=== PATIENT | male | born 1985 | race Two or more races ===

== ENCOUNTER 2020-10-10 12:29 | Emergency (ER) | payer SELFPAY ==
--- NOTE | 2020-10-10 13:01 | EDM.PDOC ---
ED HPI GENERAL MEDICAL PROBLEM - General Chief Complaint: Lower Extremity Injury/Pain Stated Complaint: KNEE PAIN Time Seen by Provider: 10/10/20 12:58 Source of Information: Reports: Patient History Limitations: Reports: No Limitations - History of Present Illness INITIAL COMMENTS - FREE TEXT/NARRATIVE: Patient is a 35-year-old male with significant clinic for ankle pain. Patient dates he has some pain in his second and third fingers and also the right ankle. Ankles bother him so much that he can barely put pressure on it. Pain states he occasionally gets pain in his joints and swelling in his knees left hand and elbow over the past few months is not sure the cause of it. Patient is confused and states that he went to his PMD and has some labs drawn and he said his liver enzymes are elevated we checked the computer there were no M liver enzymes drawn just a CRP. Patient also had x-rays not show any swelling. Patient has any fever chills direct injuries to this joint or other complaints. Right ankle Pain Score (Numeric/FACES): 4 - Related Data Allergies Allergy/AdvReac Type Severity Reaction Status Date / Time No Known Allergies Allergy Verified 10/10/20 12:58 Home Meds: Home Meds predniSONE [Prednisone] 10 mg PO DAILY 10 Days #36 tablet 10/10/20 [Rx] Past Medical History - Past Health History Medical/Surgical History: Denies Medical/Surgical History - Infectious Disease History Infectious Disease History: Reports: None Social & Family History - Family History Family Medical History: No Pertinent Family History - Tobacco Use Tobacco Use Status *Q: Unknown Ever Used Tobacco - Recreational Drug Use Recreational Drug Use: No Review of Systems - Review of Systems Review Of Systems: See Below Constitutional: Reports: No Symptoms Eyes: Reports: No Symptoms Ears: Reports: No Symptoms Nose: Reports: No Symptoms Mouth/Throat: Reports: No Symptoms Respiratory: Reports: No Symptoms Cardiovascular: Reports: No Symptoms GI/Abdominal: Reports: No Symptoms Genitourinary: Reports: No Symptoms Musculoskeletal: Reports: Foot Pain Skin: Reports: No Symptoms Neurological: Reports: No Symptoms Psychiatric: Reports: No Symptoms ED EXAM, GENERAL - Physical Exam Exam: See Below Exam Limited By: No Limitations General Appearance: Alert, WD/WN, No Apparent Distress Head: Atraumatic Respiratory/Chest: No Respiratory Distress, Lungs Clear Cardiovascular: Normal Peripheral Pulses, Regular Rate, Rhythm Peripheral Pulses: 2+: Dorsalis Pedis (L), Dorsalis Pedis (R) GI/Abdominal: Normal Bowel Sounds, Soft, Non-Tender Extremities: Normal Range of Motion, Joint Swelling (right ankle). No: Non- Tender Neurological: Alert, Oriented Course - Vital Signs Last Recorded V/S: Last Vital Signs Temp 97.5 F 10/10/20 12:38 Pulse 100 10/10/20 12:38 Resp 16 10/10/20 12:38 BP 132/80 10/10/20 12:38 Pulse Ox 97 10/10/20 12:38 - Orders/Labs/Meds Labs: Laboratory Tests 10/10/20 10/10/20 10/10/20 Range/Units 13:33 13:33 13:33 WBC 12.37 H (4.0-11.0) K/uL RBC 4.07 L (4.50-5.90) M/uL Hgb 12.7 L (13.0-17.0) g/dL Hct 38.3 (38.0-50.0) % MCV 94.1 (80.0-98.0) fL MCH 31.2 (27.0-32.0) pg MCHC 33.2 (31.0-37.0) g/dL RDW Std Deviation 44.7 (28.0-62.0) fl RDW Coeff of Jamal 13 (11.0-15.0) % Plt Count 249 (150-400) K/uL MPV 10.20 (7.40-12.00) fL Neut % (Auto) 85.1 H (48.0-80.0) % Lymph % (Auto) 8.5 L (16.0-40.0) % [place] % (Auto) 6.3 (0.0-15.0) % Eos % (Auto) 0.0 (0.0-7.0) % Baso % (Auto) 0.1 (0.0-1.5) % Neut # (Auto) 10.5 H (1.4-5.7) K/uL Lymph # (Auto) 1.1 (0.6-2.4) K/uL [place] # (Auto) 0.8 (0.0-0.8) K/uL Eos # (Auto) 0.0 (0.0-0.7) K/uL Baso # (Auto) 0.0 (0.0-0.1) K/uL Nucleated RBC % 0.0 /100WBC Nucleated RBCs # 0 K/uL ESR 44 H (0-14) mm/hr Sodium 139 (136-148) mmol/L Potassium 4.5 (3.5-5.1) mmol/L Chloride 101 (98-107) mmol/L Carbon Dioxide 24.7 (21.0-32.0) mmol/L BUN 21 H (7.0-18.0) mg/dL Creatinine 2.6 H (0.8-1.3) mg/dL Est Cr Clr Drug Dosing 38.89 mL/min Estimated GFR (MDRD) 28.6 ml/min Glucose 96 (74-106) mg/dL Calcium 9.3 (8.5-10.1) mg/dL Total Bilirubin 0.6 (0.2-1.0) mg/dL AST 13 L (15-37) IU/L ALT 15 (14-63) IU/L Alkaline Phosphatase 83 (46-116) U/L Creatine Kinase 65 (26-308) U/L Total Protein 8.7 H (6.4-8.2) g/dL Albumin 3.3 L (3.4-5.0) g/dL Globulin 5.4 H (2.6-4.0) g/dL Albumin/Globulin Ratio 0.6 L (0.9-1.6) Meds: Medications Discontinued Medications Generic Name Dose Route Start Last Admin Trade Name Freq PRN Reason Stop Dose Admin Prednisone 40 mg 10/11/20 12:57 Prednisone 20 Mg Tab PO 10/11/20 12:58 ONETIME ONE Prednisone 40 mg 10/10/20 13:24 10/10/20 13:28 Prednisone 20 Mg Tab PO 10/10/20 13:25 40 mg ONETIME ONE Administration - Re-Assessments/Exams Free Text/Narrative Re-Assessment/Exam: 10/10/20 15:03 Due to patient creatinine we will start patient on a prednisone taper. Unlikely based on septic joint as he has multiple joints that are affected this could possibly be gout. Patient cannot take any NSAIDs at this moment. What you are ordering crutches Why you are ordering it support with ambulation How it will benefit patient with ambulation How long is patient to use it 7-10day or until pain improves Departure - Departure Time of Disposition: 15:05 Disposition: Home, Self-Care 01 Condition: Good Clinical Impression: Gout - Discharge Information *PRESCRIPTION DRUG MONITORING PROGRAM REVIEWED*: Not Applicable *COPY OF PRESCRIPTION DRUG MONITORING REPORT IN PATIENT ABELARDO: Not Applicable Prescriptions: predniSONE [Prednisone] 10 mg PO DAILY 10 Days #36 tablet Instructions: Osteoarthritis Referrals: PCP,None [Primary Care Provider] - Forms: ED Department Discharge Additional Instructions: The following information is given to patients seen in the emergency department who are being discharged to home. This information is to outline your options for follow-up care. We provide all patients seen in our emergency department with a follow-up referral. The need for follow-up, as well as the timing and circumstances, are variable depending upon the specifics of your emergency department visit. If you don't have a primary care physician on staff, we will provide you with a referral. We always advise you to contact your personal physician following an emergency department visit to inform them of the circumstance of the visit and for follow-up with them and/or the need for any referrals to a consulting specialist. The emergency department will also refer you to a specialist when appropriate. This referral assures that you have the opportunity for follow-up care with a specialist. All of these measure are taken in an effort to provide you with optimal care, which includes your follow-up. Under all circumstances we always encourage you to contact your private phys ician who remains a resource for coordinating your care. When calling for follow-up care, please make the office aware that this follow-up is from your recent emergency room visit. If for any reason you are refused follow-up, please contact the [facility] Emergency Department at and asked to speak to the emergency department charge nurse. Please follow up with your primary care physician. If you do not have a primary care physician, see below: [facility] [address] [place] [id number] [address] Lo vieron hoy por hinchazn y dolor en el tobillo y dolor. Es probable que tenga gota, le enviaremos a casa con mya reduccin de esteroides que angeles tomara amarjit los prximos 10 metzger. El da 1 puede harriet 50 mg amarjit 5 metzger en total y luego despus de harriet 40 mg amarjit 1 da, 30 mg amarjit 1 da, 20 mg amarjit 1 da y luego 10 mg 2 metzger por un total de 10 metzger. Si tiene ms dolor o hinchazn o fiebre o escalofros, regrese al servicio de urgencias; de lo contrario, cassie un seguimiento con cedeño mdico de atencin primaria. Sepsis Event Note (ED) - Evaluation Sepsis Screening Result: No Definite Risk - Focused Exam Vital Signs: Vital Signs Temp Pulse Resp BP Pulse Ox 10/10/20 12:38 97.5 F 100 16 132/80 97 - Assessment/Plan Plan: Patient is a 35-year-old male who presents today for evaluation of right ankle pain and right hand pain. Patient had images done yesterday did not show any joint effusions or fractures. Patient seems to possibly have some gout or polyarthritis. Patient does not seem to have a septic arthritis on exam. We put ultrasound to the right ankle and there does not looks to be a pocket or joint that can be drained. Patient been taking Motrin at home. We will try patient on some prednisone and outpatient follow-up.
[2020-10-10] MEDS ORDERED: predniSONE 20 MG Tab PO ONE (13:24)
[2020-10-10 14:28] LABS: CARBON DIOXIDE,CO2 24.7 mmol/L (21.0-32.0); POTASSIUM,K 4.5 mmol/L (3.5-5.1)
[2020-10-11] MEDS ORDERED: predniSONE 20 MG Tab PO ONE (12:57)
== END 2020-10-10 15:35 | disposition home or self-care (01) ==
LOC: MW.ED 12:29
DX: M10.9 Gout, unspecified (principal)
CPT/HCPCS: 36415; 80053; 82550; 85025; 85652; 99283; A9270

== ENCOUNTER 2020-10-22 11:59 | Inpatient (IN) | payer OTHER ==
[2020-10-22] MEDS ORDERED: Ketorolac 15 MG/ML SDV IVPUSH ONE (12:27)
[2020-10-22] MEDS ORDERED: Ketorolac 30 MG/ML SDV IM ONE (12:41)
[2020-10-22 13:11] LABS: CARBON DIOXIDE,CO2 25.1 mmol/L (21.0-32.0); POTASSIUM,K 3.9 mmol/L (3.5-5.1)
[2020-10-22] MEDS ORDERED: Lactated Ringers 1,000 ML IV SCH (14:30)
[2020-10-22] MEDS ORDERED: predniSONE 20 MG Tab PO ONE (16:16)
[2020-10-22] MEDS ORDERED: Ondansetron 4 MG Tab.DIS PO PRN (18:17)
[2020-10-22] MEDS ORDERED: cefTRIAXone 1 GM Vial IVPUSH ONE (18:22)
--- NOTE | 2020-10-22 18:38 | PCM.HP.2 ---
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 Patient has no significant past medical history, however was recently seen for joint pain, treated for gouty arthritis, underwent extensive work-up with imaging, labs, nephrology consult for kidney injury and started on prednisone taper for what appeared to be a gouty arthritis flare. Since PCPs follow-up patient has dis continued all use of NSAIDs, home herbal remedies from [place] as well as been compliant and adherent with the prednisone regimen. Upon follow-up with PCP patient was feeling much improved, all studies were found to be negative including imaging such as x-rays, retroperitoneal ultrasound and rheumatologic labs. However, at that time his uric acid was elevated as well as ESR CRP and since in comparison today with lab collection in the ED all of these values have increased. Patient described pain on admission 10 out of 10, was given bolus of LR, lidocaine 30 of Toradol and prednisone 60. Since then symptoms have mildly improved to be an 8 out of 10. Otherwise patient denies any alleviating or aggravating factors. Denies any previous history of rheumatologic or kidney disease. Denies any associated family history. Denies any associated symptoms today such as fever, chills, no obvious tophi, no significant erythema or drainage from any joints. Denies any history of STDs or recent exposures or travel. Furthermore, patient denies any nausea, vomiting, diarrhea, urinary changes, flank pain or suprapubic tenderness. ED course: CBC demonstrating elevated white count of 20.3, CMP demonstrating renal failure with a BUN of 29 and creatinine of 2.6 respectively, Covid swabnegative, synovial uric acid, CRP19.6, ESR82, chlamydia and gonorrhea, synovial fluid tested from left knee joint indicating monosodium urate crystals. All extremeties Pain Score (Numeric/FACES): 10 - Related Data Allergies/Adverse Reactions: Allergies Allergy/AdvReac Type Severity Reaction Status Date / Time No Known Allergies Allergy Verified 10/22/20 18:47 Home Medications: Home Meds . [Unable to Verify Home Med List] 10/22/20 [History] Past Medical History - Past Health History Medical/Surgical History: Denies Medical/Surgical History - Infectious Disease History Infectious Disease History: Reports: None Social & Family History - Family History Family Medical History: No Pertinent Family History - Tobacco Use Tobacco Use Status *Q: Never Tobacco User - Recreational Drug Use Recreational Drug Use: No H&P Review of Systems - Review of Systems: Review Of Systems: See Below General: Reports: No Symptoms HEENT: Reports: No Symptoms Pulmonary: Reports: No Symptoms Cardiovascular: Reports: No Symptoms Gastrointestinal: Reports: No Symptoms Genitourinary: Reports: No Symptoms Musculoskeletal: Reports: Arm Pain, Hand Pain, Leg Pain Skin: Reports: No Symptoms Psychiatric: Reports: No Symptoms Neurological: Reports: No Symptoms Hematologic/Lymphatic: Reports: No Symptoms Immunologic: Reports: No Symptoms Exam - Exam Exam: See Below - Vital Signs Vital Signs: Last Vital Signs Temp 97.1 F 10/22/20 12:16 Pulse 89 10/22/20 18:13 Resp 16 10/22/20 18:13 BP 112/62 10/22/20 18:13 Pulse Ox 99 10/22/20 18:13 Weight: 170 lb - Exam Quality Assessment: DVT Prophylaxis General: Alert, Oriented, Cooperative, Mild Distress HEENT: Conjunctiva Clear, EACs Clear, EOMI, Hearing Intact, Mucosa Moist & [place], Nares Patent, Normal Nasal Septum, Posterior Pharynx Clear, PERRLA Neck: Supple, Trachea Midline, Full Range of Motion Lungs: Clear to Auscultation, Normal Respiratory Effort Cardiovascular: Regular Rate, Regular Rhythm, Normal S1, Normal S2 GI/Abdominal Exam: Normal Bowel Sounds, Soft, Non-Tender, No Organomegaly, No Distention, No Mass Back Exam: Normal Inspection, Full Range of Motion. No: CVA Tenderness (L), CVA Tenderness (R), Muscle Spasm, Paraspinal Tenderness, Vertebral Tenderness Extremities: Normal Inspection, Normal Range of Motion, No Pedal Edema, Normal Capillary Refill, Arm Pain Peripheral Pulses: 2+: Carotid (L), Carotid (R), Dorsalis Pedis (L), Dorsalis Pedis (R) Skin: Warm, Dry, Intact Neurological: Cranial Nerves Intact, Reflexes Equal Bilateral Neuro Extensive - Mental Status: Alert, Oriented x3, Normal Mood/Affect, Normal Cognition, Memory Intact Neuro Extensive - Motor, Sensory, Reflexes: CN II-XII Intact, Normal Reflexes DTR: 2+: Bicep (L), Bicep (R), Achilles (L), Achilles (R) Psychiatric: Alert, Normal Affect, Normal Mood - Patient Data Lab Results Last 24 hrs: Laboratory Results - last 24 hr 10/22/20 10/22/20 10/22/20 Range/Units 12:44 12:44 12:44 WBC 20.34 H (4.0-11.0) K/uL RBC 4.10 L (4.50-5.90) M/uL Hgb 12.8 L (13.0-17.0) g/dL Hct 38.2 (38.0-50.0) % MCV 93.2 (80.0-98.0) fL MCH 31.2 (27.0-32.0) pg MCHC 33.5 (31.0-37.0) g/dL RDW Std Deviation 49.0 (28.0-62.0) fl RDW Coeff of Jamal 14 (11.0-15.0) % Plt Count 268 (150-400) K/uL MPV 10.10 (7.40-12.00) fL Neut % (Auto) 86.1 H (48.0-80.0) % Lymph % (Auto) 6.4 L (16.0-40.0) % [place] % (Auto) 7.5 (0.0-15.0) % Eos % (Auto) 0.0 (0.0-7.0) % Baso % (Auto) 0.0 (0.0-1.5) % Neut # (Auto) 17.5 H (1.4-5.7) K/uL Lymph # (Auto) 1.3 (0.6-2.4) K/uL [place] # (Auto) 1.5 H (0.0-0.8) K/uL Eos # (Auto) 0.0 (0.0-0.7) K/uL Baso # (Auto) 0.0 (0.0-0.1) K/uL Nucleated RBC % 0.0 /100WBC Nucleated RBCs # 0 K/uL ESR 82 H (0-14) mm/hr Sodium 135 L (136-148) mmol/L Potassium 3.9 (3.5-5.1) mmol/L Chloride 98 (98-107) mmol/L Carbon Dioxide 25.1 (21.0-32.0) mmol/L BUN 29 H (7.0-18.0) mg/dL Creatinine 2.6 H (0.8-1.3) mg/dL Est Cr Clr Drug Dosing 35.15 mL/min Estimated GFR (MDRD) 28.6 ml/min Glucose 115 H (74-106) mg/dL Uric Acid 14.4 H (2.6-7.2) mg/dL Calcium 7.3 L (8.5-10.1) mg/dL Total Bilirubin 0.9 (0.2-1.0) mg/dL AST 11 L (15-37) IU/L ALT 21 (14-63) IU/L Alkaline Phosphatase 63 (46-116) U/L C-Reactive Protein 19.60 H (0.00-0.90) mg/dL Total Protein 8.1 (6.4-8.2) g/dL Albumin 3.3 L (3.4-5.0) g/dL Globulin 4.8 H (2.6-4.0) g/dL Albumin/Globulin Ratio 0.7 L (0.9-1.6) Urine Color Urine Appearance Urine pH (5.0-8.0) Ur Specific [place] (1.001-1.035) Urine Protein (NEGATIVE) mg/dL Urine Glucose (UA) (NEGATIVE) mg/dL Urine Ketones (NEGATIVE) mg/dL Urine Occult Blood (NEGATIVE) Urine Nitrite (NEGATIVE) Urine Bilirubin (NEGATIVE) Urine Urobilinogen (<2.0) EU/dL Ur Leukocyte Esterase (NEGATIVE) Urine RBC (0-2/HPF) Urine WBC (0-5/HPF) Ur Epithelial Cells (NONE-FEW) Urine Bacteria (NEGATIVE) Fluid Type Fluid Color Fluid Appearance Fluid WBC /uL Fluid RBC /uL Fluid Mononuclear Cell % Fl Polymorphonucl Cell % Fluid Crystals SARS-CoV-2 RNA (FORT[place]) (NEGATIVE) 06/20/21 06/20/21 06/20/21 Range/Units 13:40 15:03 16:46 WBC (4.0-11.0) K/uL RBC (4.50-5.90) M/uL Hgb (13.0-17.0) g/dL Hct (38.0-50.0) % MCV (80.0-98.0) fL MCH (27.0-32.0) pg MCHC (31.0-37.0) g/dL RDW Std Deviation (28.0-62.0) fl RDW Coeff of Jamal (11.0-15.0) % Plt Count (150-400) K/uL MPV (7.40-12.00) fL Neut % (Auto) (48.0-80.0) % Lymph % (Auto) (16.0-40.0) % [place] % (Auto) (0.0-15.0) % Eos % (Auto) (0.0-7.0) % Baso % (Auto) (0.0-1.5) % Neut # (Auto) (1.4-5.7) K/uL Lymph # (Auto) (0.6-2.4) K/uL [place] # (Auto) (0.0-0.8) K/uL Eos # (Auto) (0.0-0.7) K/uL Baso # (Auto) (0.0-0.1) K/uL Nucleated RBC % /100WBC Nucleated RBCs # K/uL ESR (0-14) mm/hr Sodium (136-148) mmol/L Potassium (3.5-5.1) mmol/L Chloride (98-107) mmol/L Carbon Dioxide (21.0-32.0) mmol/L BUN (7.0-18.0) mg/dL Creatinine (0.8-1.3) mg/dL Est Cr Clr Drug Dosing mL/min Estimated GFR (MDRD) ml/min Glucose (74-106) mg/dL Uric Acid (2.6-7.2) mg/dL Calcium (8.5-10.1) mg/dL Total Bilirubin (0.2-1.0) mg/dL AST (15-37) IU/L ALT (14-63) IU/L Alkaline Phosphatase (46-116) U/L C-Reactive Protein (0.00-0.90) mg/dL Total Protein (6.4-8.2) g/dL Albumin (3.4-5.0) g/dL Globulin (2.6-4.0) g/dL Albumin/Globulin Ratio (0.9-1.6) Urine Color YELLOW Urine Appearance CLEAR Urine pH 6.0 (5.0-8.0) Ur Specific [place] 1.020 (1.001-1.035) Urine Protein 100 H (NEGATIVE) mg/dL Urine Glucose (UA) NEGATIVE (NEGATIVE) mg/dL Urine Ketones TRACE H (NEGATIVE) mg/dL Urine Occult Blood SMALL H (NEGATIVE) Urine Nitrite NEGATIVE (NEGATIVE) Urine Bilirubin NEGATIVE (NEGATIVE) Urine Urobilinogen 0.2 (<2.0) EU/dL Ur Leukocyte Esterase NEGATIVE (NEGATIVE) Urine RBC 0-2 (0-2/HPF) Urine WBC 0-1 (0-5/HPF) Ur Epithelial Cells RARE (NONE-FEW) Urine Bacteria RARE (NEGATIVE) Fluid Type SYN Fluid Color YELLOW Fluid Appearance CLOUDY Fluid WBC 34696 /uL Fluid RBC < 3000 /uL Fluid Mononuclear Cell 37 % Fl Polymorphonucl Cell 64 % Fluid Crystals MONOSOD URATE SARS-CoV-2 RNA ([place]) NEGATIVE (NEGATIVE) Result Diagrams: 10/22/20 12:44 10/22/20 12:44 Sepsis Event Note - Evaluation Sepsis Screening Result: No Definite Risk - Focused Exam Vital Signs: Vital Signs Temp Pulse Resp BP Pulse Ox 10/22/20 18:13 89 16 112/62 99 10/22/20 16:44 94 16 120/49 L 99 10/22/20 14:22 99 16 109/52 L 98 10/22/20 12:16 97.1 F 112 H 16 131/77 97 - Problem List (1) Renal injury SNOMED Code(s): 24928309 ICD Code: S37.009A - UNSPECIFIED INJURY OF UNSPECIFIED KIDNEY, INITIAL ENCOUNTER Status: Acute Current Visit: Yes Problem List Initiated/Reviewed/Updated: Yes Orders Last 24hrs: Active Orders 24 hr Category Date Time Status Admission Status [Patient Status] [ADT] Stat ADT 10/22/20 16:50 Active Oxygen Therapy [RC] PRN Care 10/22/20 18:17 Active Up With Assistance [RC] ASDIRECTED Care 10/22/20 18:17 Active VTE/DVT Education [RC] PER UNIT ROUTINE Care 10/22/20 18:17 Active Vital Signs [RC] Q4H Care 10/22/20 18:17 Active PT Evaluation and Treatment [CONS] Routine Cons 10/22/20 18:17 Active Regular Diet [DIET] Diet 10/22/20 Dinner Active C-REACTIVE PROTEIN [CHEM] AM Lab 10/23/20 05:11 Ordered CBC WITH AUTO DIFF [HEME] AM Lab 10/23/20 05:11 Ordered CBC WITH AUTO DIFF [HEME] AM Lab 10/24/20 05:11 Ordered CBC WITH AUTO DIFF [HEME] AM Lab 10/25/20 05:11 Ordered CHLAMYDIA AND GONORRHEA BY TMA Stat Lab 10/22/20 14:30 Received COMPREHENSIVE METABOLIC PN,CMP [CHEM] AM Lab 10/23/20 05:11 Ordered COMPREHENSIVE METABOLIC PN,CMP [CHEM] AM Lab 10/24/20 05:11 Ordered COMPREHENSIVE METABOLIC PN,CMP [CHEM] AM Lab 10/25/20 05:11 Ordered CREATININE,URINE RAND [URCHEM] Routine Lab 10/22/20 18:24 Ordered CULTURE BODY FLUID + SMEAR [RM] Stat Lab 10/22/20 15:03 Received SEDIMENTATION RATE AUTO [HEME] AM Lab 10/23/20 05:11 Ordered SODIUM,URINE RANDOM [URCHEM] Routine Lab 10/22/20 18:24 Ordered SYNOVIAL URIC ACID Stat Lab 10/22/20 15:03 Received Heparin Sodium Med 10/22/20 18:30 Ordered 5,000 units SUBCUT Q8H Lactated Ringers [Ringers, Lactated] 1,000 ml Med 10/22/20 14:30 Active IV ASDIRECTED Lactated Ringers [Ringers, Lactated] 1,000 ml Med 10/22/20 18:30 Active IV ASDIRECTED Morphine Med 10/22/20 18:17 Ordered 2 mg IVPUSH Q2H PRN Ondansetron [Zofran ODT] Med 10/22/20 18:17 Active 4 mg PO Q4H PRN cefTRIAXone [Rocephin] Med 10/22/20 18:22 Once 1 gm IVPUSH ONETIME ONE Resuscitation Status Routine Resus Stat 10/22/20 18:17 Ordered Medication Orders Ceftriaxone Sodium (Ceftriaxone 1 Gm Vial) 1 gm IVPUSH ONETIME ONE Stop: 10/22/20 18:23 Heparin Sodium (Porcine) (Heparin Sodium 5,000 Units/Ml Vial) 5,000 units SUBCUT Q8H GLORIA Lactated Ringer's (Ringers, Lactated) 1,000 mls @ 999 mls/hr IV ASDIRECTED GLORIA Last Admin: 10/22/20 14:32 Dose: 999 mls/hr Documented by: ROSA Lactated Ringer's (Ringers, Lactated) 1,000 mls @ 125 mls/hr IV ASDIRECTED GLORIA Morphine Sulfate (Morphine 10 Mg/Ml Syringe) 2 mg IVPUSH Q2H PRN PRN Reason: Pain (severe 7-10) Stop: 10/23/20 18:18 Ondansetron HCl (Ondansetron 4 Mg Tab.Dis) 4 mg PO Q4H PRN PRN Reason: nausea, able to take PO Assessment/Plan Comment:: 35-year-old male admitted with gouty arthritis in multiple joints and acute on chronic kidney injury: 1. Gouty arthritis: Elevated white count of 20.3, upward trending ESR, CRP and uric acid levels. Synovial fluid demonstrated monosodium urate crystals. Extensive work-up has not demonstrated any RF, or vasculitis contributing to compromise kidney function. Patient denies any alcohol use in over a month. States he has a regular diet. We will continue with prednisone 60, consult rheumatology. Patient currently unable to ambulate therefore will consult PT to evaluate and treat. Prophylactically we will give Rocephin one-time dose in case of STD as underlying cause. Pain control with morphine 2 g to 2 hours, will avoid any NSAIDs or colchicine due to renal injury. Trend ESR and CRP daily 2. Acute on chronic kidney injury: BUN 29, creatinine 2.6, stable since last 3 weeks, no previous history of kidney disease. Previous renal ultrasound was unremarkable Unchanged UA We will consult nephrology in [place] Avoid any NSAIDs or nephrotoxic agents Continue to hydrate at a maintenance rate of 125 normal saline. Assess FeNa CODE STATUS: Full code, confirmed with japanese interpreter services. Dispo: Expected 1 to 2 days, will be determined based on patient's symptoms. Diet: Regular, avoid any meals with high levels of protein or high fructose corn syrup. DVT prophylaxis: Heparin 5000 subcu due to kidney injury.
--- NOTE | 2020-10-22 18:55 | EDM.PDOC ---
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 The patient states that he was diagnosed with gout approximately 2 weeks ago in the emergency department here. He states that he was given prednisone and he did really well. He states that he when he ran out of the medications his pain started to return however now it is worse. He rates his pain as 10 out of 10 burning located in his bilateral knees bilateral ankles, bilateral wrists and some of his fingers. He denies any fevers or redness. He denies any numbness but states that he is unable to walk secondary to the pain. He states that he did follow-up with Dr. Schmitt in the clinic and was told that he had some kidney dysfunction. He denies any preceding issues such as cold-like symptoms denies any weight loss or night sweats. He has not traveled out of country and does not know if he he is up-to-date on his vaccinations. He states that he is not sexually active and has not had a history of STDs. He denies any family history of rheumatological disorders. He denies any chest pain, shortness of breath, abdominal pain, nausea or vomiting. He denies any headache. REVIEW OF SYSTEMS: Constitutional: Denies fever, chills. Eyes: Denies eye pain Ears, Nose, Mouth, & Throat: Denies earache Cardiovascular: Denies chest pain Respiratory: Denies shortness of breath Gastrointestinal: Denies Nausea, vomiting, diarrhea, hematochezia. Genitourinary: Denies hematuria Skin:Denies a rash MSK: Positive for bilateral knee, ankle, wrist, hand pain and inability to walk secondary to pain Neurological: Denies blurred vision, numbness, tingling, weakness Psychiatric: Denies depression PAST MEDICAL HISTORY: As per history of present illness and as reviewed below otherwise noncontributory. SURGICAL HISTORY: As per history of present illness and as reviewed below otherwise noncontributory. SOCIAL HISTORY: As per history of present illness and as reviewed below otherwise noncontributory. FAMILY HISTORY: As per history of present illness and as reviewed below otherwise noncontributory. EXAMINATION OF ORGAN SYSTEMS/BODY AREAS: Constitutional: Blood pressure was 131/77, heart rate 112, respiratory rate 16 with an oxygen saturation 97% on room air. Temperature 36.2 General: Overall well-appearing man who is in no acute distress. The patient did require assistance with ambulating from wheelchair to our chair for evaluation Psychiatric: Appropriate mood and affect. Eyes: No scleral icterus or conjunctival erythema ENMT: Moist mucous membranes. No pharyngeal erythema Cardiovascular: Tachycardic but regular no gallops, murmurs, or rubs. Bilateral upper extremity pulses symmetric and intact. No peripheral edema. No JVD. Respiratory: Lungs clear to auscultation bilaterally. No wheezes, rales, or rhonchi. Gastrointestinal: Soft, non-tender, non-distended. Normoactive bowel sounds Genitourinary: No suprapubic tenderness Musculoskeletal: The patient's bilateral knees, bilateral ankles, bilateral wrists and the posterior aspect of the hand at the knuckles are all warm to the touch. There is no obvious swelling of any of these joints but they are tender to touch. Skin: There are some mild erythema on the posterior aspect of the left hand otherwise no other skin changes. Neurological: Alert, GCS 15 MEDICAL DECISION MAKING AND COURSE IN THE ED WITH INTERPRETATION/REVIEW OF DIAGNOSTIC STUDIES: This is a 35-year-old man with a reported past medical history of gout who comes to the emergency department with worsening bilateral knee, ankle, wrist and hand pain which has progressed to inability to bear weight. I did review the patient's chart and the patient was given prednisone on October 10, 2020 and was given a 10-day prescription. He did follow-up with primary care. Labs that were obtained on October 18, 2020 did reveal leukocytosis 15.62 and elevated BUN of 45 and creatinine of 2.9. It appears that prior they did obtain an ESR at 44, CRP of 9.4 and a rheumatic factor screen which was negative. At this time I do believe it is atypical to have symmetric septic arthritis and I do believe this is likely inflammatory. We will provide the patient with Toradol for pain relief. Will obtain CBC, CMP, ESR, CRP and a urinalysis. I did perform a bedside ultrasound and there was minimal effusion of the knee. I did provide the patient with 1 L of lactated Ringer's bolus given the tachycardia. Laboratory: CBC reveals a leukocytosis of 20.34 which is up from prior at 15.62. Hemoglobin of 12.8 which is around the patient's baseline, neutrophilia and lymphopenia without any obvious left shift. ESR is 82 up from 44. CMP reveals hyponatremia at 135, elevated BUN at 29 and a creatinine of 2.6 which is unchanged from prior. Hyperglycemia at 115, hypocalcemia at 7.3, hypoalbuminemia at 3.3. CRP is elevated at 19.6 which is up from prior at 9.3 Urinalysis was a clean catch and was negative for leukocyte esterase, negative for nitrites, and small for blood. 0-2 RBCs. There is proteinuria interpretation: Proteinuria At this time I did have a discussion with the patient regarding the laboratory analysis. I do believe this is all inflammatory given the elevated ESR, CRP and leukocytosis and not an infectious process. I did discuss the case also with Dr. Kenny who recommended transfer just in case this is septic arthritis and for possible evaluation by nephrology as we do not have either of those services here at our hospital. At this time had not performed a arthrocentesis. I did discuss obtaining an arthrocentesis from the patient. He was amenable to this plan. Consent was verbally obtained. ARTHROCENTESIS PROCEDURE NOTE Consent for Arthrocentesis: Risks and benefits discussed with patient and verbal consent obtained Prior to the procedure the area was confirmed via ultrasound. Site marked and prepared in sterile fashion. Wheel of lidocaine placed. Lidocaine then introduced into the joint space. The area of interest was identified by Christo palpation on the medial aspect of the left knee and Fluid was removed from the joint space . Samples were sent to the lab for analysis. Estimated Blood Loss: minimal Complications: The patient tolerated the procedure well without any known complications Laboratory: Fluid white blood cell count of the synovial fluid was 13,126, RBCs are less than 3000, polymorphonuclear cells are 64% and there is monosodium urate crystals. At this time I do believe the patient has an acute gout flare therefore I provide the patient with 60 mg of prednisone. I did contact Dr. Kenny and discussed the synovial fluid results with the hospitalist. At this time he was amenable for admission given that the patient is unable to ambulate given the pain. Patient was amenable to admission at this time. We will obtain a Covid swab DISPOSITION: The patient was admitted to the hospital in stable condition CONDITION: Fair PROCEDURES: Left knee arthrocentesis FINAL IMPRESSION(S)/DIAGNOSES: 1. Acute gouty flare 2. Acute inability to ambulate secondary to pain Chicho Duque M.D. All extremeties Pain Score (Numeric/FACES): 10 - Related Data Allergies Allergy/AdvReac Type Severity Reaction Status Date / Time No Known Allergies Allergy Verified 10/22/20 18:47 Home Meds: Home Meds . [Unable to Verify Home Med List] 10/22/20 [History] Past Medical History - Past Health History Medical/Surgical History: Denies Medical/Surgical History - Infectious Disease History Infectious Disease History: Reports: None Social & Family History - Family History Family Medical History: No Pertinent Family History - Tobacco Use Tobacco Use Status *Q: Never Tobacco User - Recreational Drug Use Recreational Drug Use: No ED ROS GENERAL - Review of Systems Review Of Systems: See Below ED EXAM, GENERAL - Physical Exam Exam: See Below GI/Abdominal: Normal Bowel Sounds, Soft, Non-Tender, No Organomegaly, No Distention, No Mass Course - Vital Signs Last Recorded V/S: Last Vital Signs Temp 36.4 C 10/22/20 18:20 Pulse 92 10/22/20 18:20 Resp 17 10/22/20 18:20 BP 119/74 10/22/20 18:20 Pulse Ox 97 10/22/20 18:20 - Orders/Labs/Meds Orders: Active Orders 24 hr Category Date Time Status CHLAMYDIA AND GONORRHEA BY TMA Stat Lab 10/22/20 14:30 Received CULTURE BODY FLUID + SMEAR [RM] Stat Lab 10/22/20 15:03 Received SYNOVIAL URIC ACID Stat Lab 10/22/20 15:03 Received Lactated Ringers [Ringers, Lactated] 1,000 ml Med 10/22/20 14:30 Active IV ASDIRECTED Medication Orders Heparin Sodium (Porcine) (Heparin Sodium 5,000 Units/Ml Vial) 5,000 units SUBCUT Q8H GLORIA Lactated Ringer's (Ringers, Lactated) 1,000 mls @ 999 mls/hr IV ASDIRECTED GLORIA Last Admin: 10/22/20 14:32 Dose: 999 mls/hr Documented by: ROSA Lactated Ringer's (Ringers, Lactated) 1,000 mls @ 125 mls/hr IV ASDIRECTED [facility] Ceftriaxone Sodium/Dextrose 1 (gm/ Premix) 50 mls @ 100 mls/hr IV Q24H GLORIA Morphine Sulfate (Morphine 2 Mg/Ml Syringe) 2 mg IVPUSH Q2H PRN PRN Reason: Pain (severe 7-10) Stop: 10/23/20 18:18 Ondansetron HCl (Ondansetron 4 Mg Tab.Dis) 4 mg PO Q4H PRN PRN Reason: nausea, able to take PO Labs: Laboratory Tests 10/22/20 10/22/20 10/22/20 Range/Units 12:44 12:44 12:44 WBC 20.34 H (4.0-11.0) K/uL RBC 4.10 L (4.50-5.90) M/uL Hgb 12.8 L (13.0-17.0) g/dL Hct 38.2 (38.0-50.0) % MCV 93.2 (80.0-98.0) fL MCH 31.2 (27.0-32.0) pg MCHC 33.5 (31.0-37.0) g/dL RDW Std Deviation 49.0 (28.0-62.0) fl RDW Coeff of Jamal 14 (11.0-15.0) % Plt Count 268 (150-400) K/uL MPV 10.10 (7.40-12.00) fL Neut % (Auto) 86.1 H (48.0-80.0) % Lymph % (Auto) 6.4 L (16.0-40.0) % [place] % (Auto) 7.5 (0.0-15.0) % Eos % (Auto) 0.0 (0.0-7.0) % Baso % (Auto) 0.0 (0.0-1.5) % Neut # (Auto) 17.5 H (1.4-5.7) K/uL Lymph # (Auto) 1.3 (0.6-2.4) K/uL [place] # (Auto) 1.5 H (0.0-0.8) K/uL Eos # (Auto) 0.0 (0.0-0.7) K/uL Baso # (Auto) 0.0 (0.0-0.1) K/uL Nucleated RBC % 0.0 /100WBC Nucleated RBCs # 0 K/uL ESR 82 H (0-14) mm/hr Sodium 135 L (136-148) mmol/L Potassium 3.9 (3.5-5.1) mmol/L Chloride 98 (98-107) mmol/L Carbon Dioxide 25.1 (21.0-32.0) mmol/L BUN 29 H (7.0-18.0) mg/dL Creatinine 2.6 H (0.8-1.3) mg/dL Est Cr Clr Drug Dosing 35.15 mL/min Estimated GFR (MDRD) 28.6 ml/min Glucose 115 H (74-106) mg/dL Uric Acid 14.4 H (2.6-7.2) mg/dL Calcium 7.3 L (8.5-10.1) mg/dL Total Bilirubin 0.9 (0.2-1.0) mg/dL AST 11 L (15-37) IU/L ALT 21 (14-63) IU/L Alkaline Phosphatase 63 (46-116) U/L C-Reactive Protein 19.60 H (0.00-0.90) mg/dL Total Protein 8.1 (6.4-8.2) g/dL Albumin 3.3 L (3.4-5.0) g/dL Globulin 4.8 H (2.6-4.0) g/dL Albumin/Globulin Ratio 0.7 L (0.9-1.6) Urine Color Urine Appearance Urine pH (5.0-8.0) Ur Specific [place] (1.001-1.035) Urine Protein (NEGATIVE) mg/dL Urine Glucose (UA) (NEGATIVE) mg/dL Urine Ketones (NEGATIVE) mg/dL Urine Occult Blood (NEGATIVE) Urine Nitrite (NEGATIVE) Urine Bilirubin (NEGATIVE) Urine Urobilinogen (<2.0) EU/dL Ur Leukocyte Esterase (NEGATIVE) Urine RBC (0-2/HPF) Urine WBC (0-5/HPF) Ur Epithelial Cells (NONE-FEW) Urine Bacteria (NEGATIVE) Ur Random Creatinine mg/dL Ur Random Sodium (40.0-220.0) mmol/L Fluid Type Fluid Color Fluid Appearance Fluid WBC /uL Fluid RBC /uL Fluid Mononuclear Cell % Fl Polymorphonucl Cell % Fluid Crystals SARS-CoV-2 RNA (FORTUNATO) (NEGATIVE) 10/22/20 10/22/20 10/22/20 Range/Units 13:40 14:30 15:03 WBC (4.0-11.0) K/uL RBC (4.50-5.90) M/uL Hgb (13.0-17.0) g/dL Hct (38.0-50.0) % MCV (80.0-98.0) fL MCH (27.0-32.0) pg MCHC (31.0-37.0) g/dL RDW Std Deviation (28.0-62.0) fl RDW Coeff of Jamal (11.0-15.0) % Plt Count (150-400) K/uL MPV (7.40-12.00) fL Neut % (Auto) (48.0-80.0) % Lymph % (Auto) (16.0-40.0) % [place] % (Auto) (0.0-15.0) % Eos % (Auto) (0.0-7.0) % Baso % (Auto) (0.0-1.5) % Neut # (Auto) (1.4-5.7) K/uL Lymph # (Auto) (0.6-2.4) K/uL [place] # (Auto) (0.0-0.8) K/uL Eos # (Auto) (0.0-0.7) K/uL Baso # (Auto) (0.0-0.1) K/uL Nucleated RBC % /100WBC Nucleated RBCs # K/uL ESR (0-14) mm/hr Sodium (136-148) mmol/L Potassium (3.5-5.1) mmol/L Chloride (98-107) mmol/L Carbon Dioxide (21.0-32.0) mmol/L BUN (7.0-18.0) mg/dL Creatinine (0.8-1.3) mg/dL Est Cr Clr Drug Dosing mL/min Estimated GFR (MDRD) ml/min Glucose (74-106) mg/dL Uric Acid (2.6-7.2) mg/dL Calcium (8.5-10.1) mg/dL Total Bilirubin (0.2-1.0) mg/dL AST (15-37) IU/L ALT (14-63) IU/L Alkaline Phosphatase (46-116) U/L C-Reactive Protein (0.00-0.90) mg/dL Total Protein (6.4-8.2) g/dL Albumin (3.4-5.0) g/dL Globulin (2.6-4.0) g/dL Albumin/Globulin Ratio (0.9-1.6) Urine Color YELLOW Urine Appearance CLEAR Urine pH 6.0 (5.0-8.0) Ur Specific [place] 1.020 (1.001-1.035) Urine Protein 100 H (NEGATIVE) mg/dL Urine Glucose (UA) NEGATIVE (NEGATIVE) mg/dL Urine Ketones TRACE H (NEGATIVE) mg/dL Urine Occult Blood SMALL H (NEGATIVE) Urine Nitrite NEGATIVE (NEGATIVE) Urine Bilirubin NEGATIVE (NEGATIVE) Urine Urobilinogen 0.2 (<2.0) EU/dL Ur Leukocyte Esterase NEGATIVE (NEGATIVE) Urine RBC 0-2 (0-2/HPF) Urine WBC 0-1 (0-5/HPF) Ur Epithelial Cells RARE (NONE-FEW) Urine Bacteria RARE (NEGATIVE) Ur Random Creatinine 107.9 mg/dL Ur Random Sodium 49.0 (40.0-220.0) mmol/L Fluid Type SYN Fluid Color YELLOW Fluid Appearance CLOUDY Fluid WBC 02179 /uL Fluid RBC < 3000 /uL Fluid Mononuclear Cell 37 % Fl Polymorphonucl Cell 64 % Fluid Crystals MONOSOD URATE SARS-CoV-2 RNA (FOTRUNATO) (NEGATIVE) 10/22/20 Range/Units 16:46 WBC (4.0-11.0) K/uL RBC (4.50-5.90) M/uL Hgb (13.0-17.0) g/dL Hct (38.0-50.0) % MCV (80.0-98.0) fL MCH (27.0-32.0) pg MCHC (31.0-37.0) g/dL RDW Std Deviation (28.0-62.0) fl RDW Coeff of Jamal (11.0-15.0) % Plt Count (150-400) K/uL MPV (7.40-12.00) fL Neut % (Auto) (48.0-80.0) % Lymph % (Auto) (16.0-40.0) % [place] % (Auto) (0.0-15.0) % Eos % (Auto) (0.0-7.0) % Baso % (Auto) (0.0-1.5) % Neut # (Auto) (1.4-5.7) K/uL Lymph # (Auto) (0.6-2.4) K/uL [place] # (Auto) (0.0-0.8) K/uL Eos # (Auto) (0.0-0.7) K/uL Baso # (Auto) (0.0-0.1) K/uL Nucleated RBC % /100WBC Nucleated RBCs # K/uL ESR (0-14) mm/hr Sodium (136-148) mmol/L Potassium (3.5-5.1) mmol/L Chloride (98-107) mmol/L Carbon Dioxide (21.0-32.0) mmol/L BUN (7.0-18.0) mg/dL Creatinine (0.8-1.3) mg/dL Est Cr Clr Drug Dosing mL/min Estimated GFR (MDRD) ml/min Glucose (74-106) mg/dL Uric Acid (2.6-7.2) mg/dL Calcium (8.5-10.1) mg/dL Total Bilirubin (0.2-1.0) mg/dL AST (15-37) IU/L ALT (14-63) IU/L Alkaline Phosphatase (46-116) U/L C-Reactive Protein (0.00-0.90) mg/dL Total Protein (6.4-8.2) g/dL Albumin (3.4-5.0) g/dL Globulin (2.6-4.0) g/dL Albumin/Globulin Ratio (0.9-1.6) Urine Color Urine Appearance Urine pH (5.0-8.0) Ur Specific [place] (1.001-1.035) Urine Protein (NEGATIVE) mg/dL Urine Glucose (UA) (NEGATIVE) mg/dL Urine Ketones (NEGATIVE) mg/dL Urine Occult Blood (NEGATIVE) Urine Nitrite (NEGATIVE) Urine Bilirubin (NEGATIVE) Urine Urobilinogen (<2.0) EU/dL Ur Leukocyte Esterase (NEGATIVE) Urine RBC (0-2/HPF) Urine WBC (0-5/HPF) Ur Epithelial Cells (NONE-FEW) Urine Bacteria (NEGATIVE) Ur Random Creatinine mg/dL Ur Random Sodium (40.0-220.0) mmol/L Fluid Type Fluid Color Fluid Appearance Fluid WBC /uL Fluid RBC /uL Fluid Mononuclear Cell % Fl Polymorphonucl Cell % Fluid Crystals SARS-CoV-2 RNA (FORTUNATO) NEGATIVE (NEGATIVE) Meds: Medications Generic Name Dose Route Start Last Admin Trade Name Freq PRN Reason Stop Dose Admin Heparin Sodium (Porcine) 5,000 units 10/22/20 22:00 Heparin Sodium 5,000 Units/Ml Vial SUBCUT Q8H GLORIA Lactated Ringer's 1,000 mls @ 999 mls/hr 10/22/20 14:30 10/22/20 14:32 Ringers, Lactated IV 999 mls/hr ASDIRECTED GLORIA Administration Lactated Ringer's 1,000 mls @ 125 mls/hr 10/22/20 18:30 Ringers, Lactated IV ASDIRECTED GLORIA Ceftriaxone Sodium/Dextrose 1 50 mls @ 100 mls/hr 10/22/20 19:30 gm/ Premix IV Q24H GLORIA Morphine Sulfate 2 mg 10/22/20 18:17 Morphine 2 Mg/Ml Syringe IVPUSH 10/23/20 18:18 Q2H PRN Pain (severe 7-10) Ondansetron HCl 4 mg 10/22/20 18:17 Ondansetron 4 Mg Tab.Dis PO Q4H PRN nausea, able to take PO Discontinued Medications Generic Name Dose Route Start Last Admin Trade Name Freq PRN Reason Stop Dose Admin Heparin Sodium (Porcine) 5,000 units 10/22/20 22:00 Heparin Sodium 5,000 Units/Ml Vial SUBCUT Q8H GLORIA Ceftriaxone Sodium 1 gm/ 50 mls @ 100 mls/hr 10/22/20 19:00 10/22/20 19:29 Sodium Chloride IV Not Given Q24H GLORIA Ceftriaxone Sodium/Dextrose Confirm 10/22/20 19:28 10/22/20 19:39 Rocephin In Dextrose,Iso-Osm 1 Gm/50 Ml Administered 10/22/20 19:29 Not Given Dose 50 mls @ as directed .ROUTE .STK-MED ONE Ketorolac Tromethamine 30 mg 10/22/20 12:27 10/22/20 12:48 Ketorolac 15 Mg/Ml Sdv IVPUSH 10/22/20 12:28 Not Given ONETIME ONE Ketorolac Tromethamine 30 mg 10/22/20 12:41 10/22/20 12:47 Ketorolac 30 Mg/Ml Sdv IM 10/22/20 12:42 30 mg ONETIME ONE Administration Lidocaine HCl 10 ml 10/22/20 14:35 10/22/20 14:46 Lidocaine 1% 5 Ml Sdv INJECT 10/22/20 14:36 10 ml ONETIME ONE Administration Prednisone 60 mg 10/22/20 16:16 10/22/20 16:45 Prednisone 20 Mg Tab PO 10/22/20 16:17 60 mg ONETIME ONE Administration Departure - Departure Time of Disposition: 16:50 Disposition: Admitted As Inpatient 68 Clinical Impression: Gout - Discharge Information Sepsis Event Note (ED) - Evaluation Sepsis Screening Result: No Definite Risk - Focused Exam Vital Signs: Vital Signs Temp Pulse Resp BP Pulse Ox 10/22/20 16:44 94 16 120/49 L 99 10/22/20 14:22 99 16 109/52 L 98 10/22/20 12:16 36.2 C 112 H 16 131/77 97 - My Orders Last 24 Hours: My Active Orders 10/22/20 14:30 CHLAMYDIA AND GONORRHEA BY TMA Stat Lactated Ringers [Ringers, Lactated] 1,000 ml IV ASDIRECTED 10/22/20 15:03 CULTURE BODY FLUID + SMEAR [RM] Stat SYNOVIAL URIC ACID Stat - Assessment/Plan Last 24 Hours: My Active Orders 10/22/20 14:30 CHLAMYDIA AND GONORRHEA BY TMA Stat Lactated Ringers [Ringers, Lactated] 1,000 ml IV ASDIRECTED 10/22/20 15:03 CULTURE BODY FLUID + SMEAR [RM] Stat SYNOVIAL URIC ACID Stat
[2020-10-22] MEDS ORDERED: cefTRIAXone 1 GM in Sodium Chloride 0.9% 50 ML IV SCH (19:00)
[2020-10-22] MEDS ORDERED: cefTRIAXone 1 GM in Premix Bag 1 BAG IV SCH (19:30)
[2020-10-22] MEDS: Morphine 2 MG/ML SYRINGE IVPUSH PRN (21:03)
[2020-10-22] MEDS: Lactated Ringers 1,000 ML IV SCH (21:47)
[2020-10-22] MEDS: Heparin Sodium 5,000 Units/ML Vial SUBCUT SCH (21:51)
[2020-10-22] MEDS ORDERED: Heparin Sodium 5,000 Units/ML Vial SUBCUT SCH (22:00)
[2020-10-23] MEDS: Lactated Ringers 1,000 ML IV SCH ×3 (05:42→23:55)
[2020-10-23] MEDS: Heparin Sodium 5,000 Units/ML Vial SUBCUT SCH ×3 (05:43→21:49)
[2020-10-23 06:17] LABS: CARBON DIOXIDE,CO2 22.7 mmol/L (21.0-32.0); POTASSIUM,K 4.3 mmol/L (3.5-5.1)
[2020-10-23] MEDS: Morphine 2 MG/ML SYRINGE IVPUSH PRN (08:09)
--- NOTE | 2020-10-23 09:33 | PCM.PN ---
- General Info Date of Service: 10/23/20 Admission Dx/Problem (Free Text): Admission Diagnosis/Problem Admission Diagnosis/Problem Gout affecting multiple joints Functional Status: Reports: Pain Controlled, Tolerating Diet, Urinating - Review of Systems General: Reports: No Symptoms HEENT: Reports: No Symptoms Pulmonary: Reports: No Symptoms Cardiovascular: Reports: No Symptoms Gastrointestinal: Reports: No Symptoms Genitourinary: Reports: No Symptoms Musculoskeletal: Reports: Arm Pain, Hand Pain, Leg Pain, Joint Pain Skin: Reports: No Symptoms Neurological: Reports: No Symptoms Psychiatric: Reports: No Symptoms - Patient Data Vitals - Most Recent: Last Vital Signs Temp 97.5 F 10/23/20 07:40 Pulse 69 10/23/20 07:40 Resp 14 10/23/20 07:40 BP 109/73 10/23/20 07:40 Pulse Ox 99 10/23/20 07:40 Weight - Most Recent: 170 lb 1.6 oz I&O - Last 24 Hours: Intake & Output 10/22/20 10/23/20 10/23/20 22:59 06:59 14:59 Intake Total 938 Output Total 750 Balance 188 Lab Results Last 24 Hours: Laboratory Results - last 24 hr 10/22/20 10/22/20 10/22/20 Range/Units 12:44 12:44 12:44 WBC 20.34 H (4.0-11.0) K/uL RBC 4.10 L (4.50-5.90) M/uL Hgb 12.8 L (13.0-17.0) g/dL Hct 38.2 (38.0-50.0) % MCV 93.2 (80.0-98.0) fL MCH 31.2 (27.0-32.0) pg MCHC 33.5 (31.0-37.0) g/dL RDW Std Deviation 49.0 (28.0-62.0) fl RDW Coeff of Jamal 14 (11.0-15.0) % Plt Count 268 (150-400) K/uL MPV 10.10 (7.40-12.00) fL Neut % (Auto) 86.1 H (48.0-80.0) % Lymph % (Auto) 6.4 L (16.0-40.0) % [place] % (Auto) 7.5 (0.0-15.0) % Eos % (Auto) 0.0 (0.0-7.0) % Baso % (Auto) 0.0 (0.0-1.5) % Neut # (Auto) 17.5 H (1.4-5.7) K/uL Lymph # (Auto) 1.3 (0.6-2.4) K/uL [place] # (Auto) 1.5 H (0.0-0.8) K/uL Eos # (Auto) 0.0 (0.0-0.7) K/uL Baso # (Auto) 0.0 (0.0-0.1) K/uL Nucleated RBC % 0.0 /100WBC Nucleated RBCs # 0 K/uL ESR 82 H (0-14) mm/hr Sodium 135 L (136-148) mmol/L Potassium 3.9 (3.5-5.1) mmol/L Chloride 98 (98-107) mmol/L Carbon Dioxide 25.1 (21.0-32.0) mmol/L BUN 29 H (7.0-18.0) mg/dL Creatinine 2.6 H (0.8-1.3) mg/dL Est Cr Clr Drug Dosing 35.15 mL/min Estimated GFR (MDRD) 28.6 ml/min Glucose 115 H (74-106) mg/dL Uric Acid 14.4 H (2.6-7.2) mg/dL Calcium 7.3 L (8.5-10.1) mg/dL Total Bilirubin 0.9 (0.2-1.0) mg/dL AST 11 L (15-37) IU/L ALT 21 (14-63) IU/L Alkaline Phosphatase 63 (46-116) U/L C-Reactive Protein 19.60 H (0.00-0.90) mg/dL Total Protein 8.1 (6.4-8.2) g/dL Albumin 3.3 L (3.4-5.0) g/dL Globulin 4.8 H (2.6-4.0) g/dL Albumin/Globulin Ratio 0.7 L (0.9-1.6) Urine Color Urine Appearance Urine pH (5.0-8.0) Ur Specific [place] (1.001-1.035) Urine Protein (NEGATIVE) mg/dL Urine Glucose (UA) (NEGATIVE) mg/dL Urine Ketones (NEGATIVE) mg/dL Urine Occult Blood (NEGATIVE) Urine Nitrite (NEGATIVE) Urine Bilirubin (NEGATIVE) Urine Urobilinogen (<2.0) EU/dL Ur Leukocyte Esterase (NEGATIVE) Urine RBC (0-2/HPF) Urine WBC (0-5/HPF) Ur Epithelial Cells (NONE-FEW) Urine Bacteria (NEGATIVE) Ur Random Creatinine mg/dL Ur Random Sodium (40.0-220.0) mmol/L Fluid Type Fluid Color Fluid Appearance Fluid WBC /uL Fluid RBC /uL Fluid Mononuclear Cell % Fl Polymorphonucl Cell % Fluid Crystals SARS-CoV-2 RNA ([place]) (NEGATIVE) 10/22/20 10/22/20 10/22/20 Range/Units 13:40 14:30 15:03 WBC (4.0-11.0) K/uL RBC (4.50-5.90) M/uL Hgb (13.0-17.0) g/dL Hct (38.0-50.0) % MCV (80.0-98.0) fL MCH (27.0-32.0) pg MCHC (31.0-37.0) g/dL RDW Std Deviation (28.0-62.0) fl RDW Coeff of Jamal (11.0-15.0) % Plt Count (150-400) K/uL MPV (7.40-12.00) fL Neut % (Auto) (48.0-80.0) % Lymph % (Auto) (16.0-40.0) % [place] % (Auto) (0.0-15.0) % Eos % (Auto) (0.0-7.0) % Baso % (Auto) (0.0-1.5) % Neut # (Auto) (1.4-5.7) K/uL Lymph # (Auto) (0.6-2.4) K/uL [place] # (Auto) (0.0-0.8) K/uL Eos # (Auto) (0.0-0.7) K/uL Baso # (Auto) (0.0-0.1) K/uL Nucleated RBC % /100WBC Nucleated RBCs # K/uL ESR (0-14) mm/hr Sodium (136-148) mmol/L Potassium (3.5-5.1) mmol/L Chloride (98-107) mmol/L Carbon Dioxide (21.0-32.0) mmol/L BUN (7.0-18.0) mg/dL Creatinine (0.8-1.3) mg/dL Est Cr Clr Drug Dosing mL/min Estimated GFR (MDRD) ml/min Glucose (74-106) mg/dL Uric Acid (2.6-7.2) mg/dL Calcium (8.5-10.1) mg/dL Total Bilirubin (0.2-1.0) mg/dL AST (15-37) IU/L ALT (14-63) IU/L Alkaline Phosphatase (46-116) U/L C-Reactive Protein (0.00-0.90) mg/dL Total Protein (6.4-8.2) g/dL Albumin (3.4-5.0) g/dL Globulin (2.6-4.0) g/dL Albumin/Globulin Ratio (0.9-1.6) Urine Color YELLOW Urine Appearance CLEAR Urine pH 6.0 (5.0-8.0) Ur Specific [place] 1.020 (1.001-1.035) Urine Protein 100 H (NEGATIVE) mg/dL Urine Glucose (UA) NEGATIVE (NEGATIVE) mg/dL Urine Ketones TRACE H (NEGATIVE) mg/dL Urine Occult Blood SMALL H (NEGATIVE) Urine Nitrite NEGATIVE (NEGATIVE) Urine Bilirubin NEGATIVE (NEGATIVE) Urine Urobilinogen 0.2 (<2.0) EU/dL Ur Leukocyte Esterase NEGATIVE (NEGATIVE) Urine RBC 0-2 (0-2/HPF) Urine WBC 0-1 (0-5/HPF) Ur Epithelial Cells RARE (NONE-FEW) Urine Bacteria RARE (NEGATIVE) Ur Random Creatinine 107.9 mg/dL Ur Random Sodium 49.0 (40.0-220.0) mmol/L Fluid Type SYN Fluid Color YELLOW Fluid Appearance CLOUDY Fluid WBC 52259 /uL Fluid RBC < 3000 /uL Fluid Mononuclear Cell 37 % Fl Polymorphonucl Cell 64 % Fluid Crystals MONOSOD URATE SARS-CoV-2 RNA ([place]) (NEGATIVE) 10/22/20 10/23/20 10/23/20 Range/Units 16:46 05:30 05:30 WBC 13.00 H (4.0-11.0) K/uL RBC 3.69 L (4.50-5.90) M/uL Hgb 11.6 L (13.0-17.0) g/dL Hct 34.6 L (38.0-50.0) % MCV 93.8 (80.0-98.0) fL MCH 31.4 (27.0-32.0) pg MCHC 33.5 (31.0-37.0) g/dL RDW Std Deviation 49.3 (28.0-62.0) fl RDW Coeff of Jamal 14 (11.0-15.0) % Plt Count 200 (150-400) K/uL MPV 10.50 (7.40-12.00) fL Neut % (Auto) 91.4 H (48.0-80.0) % Lymph % (Auto) 5.0 L (16.0-40.0) % [place] % (Auto) 3.6 (0.0-15.0) % Eos % (Auto) 0.0 (0.0-7.0) % Baso % (Auto) 0.0 (0.0-1.5) % Neut # (Auto) 11.9 H (1.4-5.7) K/uL Lymph # (Auto) 0.7 (0.6-2.4) K/uL [place] # (Auto) 0.5 (0.0-0.8) K/uL Eos # (Auto) 0.0 (0.0-0.7) K/uL Baso # (Auto) 0.0 (0.0-0.1) K/uL Nucleated RBC % 0.0 /100WBC Nucleated RBCs # 0 K/uL ESR 79 H (0-14) mm/hr Sodium (136-148) mmol/L Potassium (3.5-5.1) mmol/L Chloride (98-107) mmol/L Carbon Dioxide (21.0-32.0) mmol/L BUN (7.0-18.0) mg/dL Creatinine (0.8-1.3) mg/dL Est Cr Clr Drug Dosing mL/min Estimated GFR (MDRD) ml/min Glucose (74-106) mg/dL Uric Acid (2.6-7.2) mg/dL Calcium (8.5-10.1) mg/dL Total Bilirubin (0.2-1.0) mg/dL AST (15-37) IU/L ALT (14-63) IU/L Alkaline Phosphatase (46-116) U/L C-Reactive Protein (0.00-0.90) mg/dL Total Protein (6.4-8.2) g/dL Albumin (3.4-5.0) g/dL Globulin (2.6-4.0) g/dL Albumin/Globulin Ratio (0.9-1.6) Urine Color Urine Appearance Urine pH (5.0-8.0) Ur Specific [place] (1.001-1.035) Urine Protein (NEGATIVE) mg/dL Urine Glucose (UA) (NEGATIVE) mg/dL Urine Ketones (NEGATIVE) mg/dL Urine Occult Blood (NEGATIVE) Urine Nitrite (NEGATIVE) Urine Bilirubin (NEGATIVE) Urine Urobilinogen (<2.0) EU/dL Ur Leukocyte Esterase (NEGATIVE) Urine RBC (0-2/HPF) Urine WBC (0-5/HPF) Ur Epithelial Cells (NONE-FEW) Urine Bacteria (NEGATIVE) Ur Random Creatinine mg/dL Ur Random Sodium (40.0-220.0) mmol/L Fluid Type Fluid Color Fluid Appearance Fluid WBC /uL Fluid RBC /uL Fluid Mononuclear Cell % Fl Polymorphonucl Cell % Fluid Crystals SARS-CoV-2 RNA ([place]) NEGATIVE (NEGATIVE) 10/23/20 Range/Units 05:30 WBC (4.0-11.0) K/uL RBC (4.50-5.90) M/uL Hgb (13.0-17.0) g/dL Hct (38.0-50.0) % MCV (80.0-98.0) fL MCH (27.0-32.0) pg MCHC (31.0-37.0) g/dL RDW Std Deviation (28.0-62.0) fl RDW Coeff of Jamal (11.0-15.0) % Plt Count (150-400) K/uL MPV (7.40-12.00) fL Neut % (Auto) (48.0-80.0) % Lymph % (Auto) (16.0-40.0) % [place] % (Auto) (0.0-15.0) % Eos % (Auto) (0.0-7.0) % Baso % (Auto) (0.0-1.5) % Neut # (Auto) (1.4-5.7) K/uL Lymph # (Auto) (0.6-2.4) K/uL [place] # (Auto) (0.0-0.8) K/uL Eos # (Auto) (0.0-0.7) K/uL Baso # (Auto) (0.0-0.1) K/uL Nucleated RBC % /100WBC Nucleated RBCs # K/uL ESR (0-14) mm/hr Sodium 138 (136-148) mmol/L Potassium 4.3 (3.5-5.1) mmol/L Chloride 104 (98-107) mmol/L Carbon Dioxide 22.7 (21.0-32.0) mmol/L BUN 35 H (7.0-18.0) mg/dL Creatinine 2.4 H (0.8-1.3) mg/dL Est Cr Clr Drug Dosing 38.08 mL/min Estimated GFR (MDRD) 31.3 ml/min Glucose 117 H (74-106) mg/dL Uric Acid (2.6-7.2) mg/dL Calcium 7.5 L (8.5-10.1) mg/dL Total Bilirubin 0.5 (0.2-1.0) mg/dL AST 6 L (15-37) IU/L ALT 11 L (14-63) IU/L Alkaline Phosphatase 59 (46-116) U/L C-Reactive Protein 25.10 H (0.00-0.90) mg/dL Total Protein 7.0 (6.4-8.2) g/dL Albumin 2.5 L (3.4-5.0) g/dL Globulin 4.5 H (2.6-4.0) g/dL Albumin/Globulin Ratio 0.6 L (0.9-1.6) Urine Color Urine Appearance Urine pH (5.0-8.0) Ur Specific [place] (1.001-1.035) Urine Protein (NEGATIVE) mg/dL Urine Glucose (UA) (NEGATIVE) mg/dL Urine Ketones (NEGATIVE) mg/dL Urine Occult Blood (NEGATIVE) Urine Nitrite (NEGATIVE) Urine Bilirubin (NEGATIVE) Urine Urobilinogen (<2.0) EU/dL Ur Leukocyte Esterase (NEGATIVE) Urine RBC (0-2/HPF) Urine WBC (0-5/HPF) Ur Epithelial Cells (NONE-FEW) Urine Bacteria (NEGATIVE) Ur Random Creatinine mg/dL Ur Random Sodium (40.0-220.0) mmol/L Fluid Type Fluid Color Fluid Appearance Fluid WBC /uL Fluid RBC /uL Fluid Mononuclear Cell % Fl Polymorphonucl Cell % Fluid Crystals SARS-CoV-2 RNA ([place]) (NEGATIVE) Walker Results Last 24 Hours: Microbiology 10/22/20 15:03 Gram Stain - Final Knee Fluid - Knee, Left Med Orders - Current: Current Medications Heparin Sodium (Porcine) (Heparin Sodium 5,000 Units/Ml Vial) 5,000 units SUBCUT Q8H [facility] Last Admin: 10/23/20 05:43 Dose: 5,000 units Documented by: Lactated Ringer's (Ringers, Lactated) 1,000 mls @ 999 mls/hr IV ASDIRECTED [facility] Last Admin: 10/22/20 14:32 Dose: 999 mls/hr Documented by: Lactated Ringer's (Ringers, Lactated) 1,000 mls @ 125 mls/hr IV ASDIRECTED [facility] Last Admin: 10/23/20 05:42 Dose: 125 mls/hr Documented by: Ceftriaxone Sodium/Dextrose 1 (gm/ Premix) 50 mls @ 100 mls/hr IV Q24H [facility] Last Admin: 10/22/20 20:27 Dose: 100 mls/hr Documented by: Morphine Sulfate (Morphine 2 Mg/Ml Syringe) 2 mg IVPUSH Q2H PRN PRN Reason: Pain (severe 7-10) Stop: 10/23/20 18:18 Last Admin: 10/23/20 08:09 Dose: 2 mg Documented by: Ondansetron HCl (Ondansetron 4 Mg Tab.Dis) 4 mg PO Q4H PRN PRN Reason: nausea, able to take PO Discontinued Medications Heparin Sodium (Porcine) (Heparin Sodium 5,000 Units/Ml Vial) 5,000 units SUBCUT Q8H [facility] Ceftriaxone Sodium 1 gm/ (Sodium Chloride) 50 mls @ 100 mls/hr IV Q24H [facility] Last Admin: 10/22/20 19:29 Dose: Not Given Documented by: Ceftriaxone Sodium/Dextrose (Rocephin In Dextrose,Iso-Osm 1 Gm/50 Ml) Confirm Administered Dose 50 mls @ as directed .ROUTE .STK-MED ONE Stop: 10/22/20 19:29 Last Admin: 10/22/20 19:39 Dose: Not Given Documented by: Ketorolac Tromethamine (Ketorolac 15 Mg/Ml Sdv) 30 mg IVPUSH ONETIME ONE Stop: 10/22/20 12:28 Last Admin: 10/22/20 12:48 Dose: Not Given Documented by: Ketorolac Tromethamine (Ketorolac 30 Mg/Ml Sdv) 30 mg IM ONETIME ONE Stop: 10/22/20 12:42 Last Admin: 10/22/20 12:47 Dose: 30 mg Documented by: Lidocaine HCl (Lidocaine 1% 5 Ml Sdv) 10 ml INJECT ONETIME ONE Stop: 10/22/20 14:36 Last Admin: 10/22/20 14:46 Dose: 10 ml Documented by: Prednisone (Prednisone 20 Mg Tab) 60 mg PO ONETIME ONE Stop: 10/22/20 16:17 Last Admin: 10/22/20 16:45 Dose: 60 mg Documented by: - Exam Quality Assessment: DVT Prophylaxis General: Alert, Oriented, Cooperative, No Acute Distress HEENT: Pupils Equal, Pupils Reactive, EOMI, Mucous Membr. Moist/[place] Neck: Supple Lungs: Clear to Auscultation, Normal Respiratory Effort Cardiovascular: Regular Rate, Regular Rhythm, No Murmurs GI/Abdominal Exam: Normal Bowel Sounds, Soft, Non-Tender Back Exam: Normal Inspection, Full Range of Motion Extremities: Normal Inspection, Normal Range of Motion, Non-Tender, No Pedal Edema, Normal Capillary Refill Peripheral Pulses: 2+: Carotid (L), Carotid (R), Dorsalis Pedis (L), Dorsalis Pedis (R) Skin: Warm, Dry, Intact Neurological: No New Focal Deficit Psy/Mental Status: Alert, Normal Affect, Normal Mood - Patient Data Lab Results Last 24 hrs: Laboratory Results - last 24 hr 10/22/20 10/22/20 10/22/20 Range/Units 12:44 12:44 12:44 WBC 20.34 H (4.0-11.0) K/uL RBC 4.10 L (4.50-5.90) M/uL Hgb 12.8 L (13.0-17.0) g/dL Hct 38.2 (38.0-50.0) % MCV 93.2 (80.0-98.0) fL MCH 31.2 (27.0-32.0) pg MCHC 33.5 (31.0-37.0) g/dL RDW Std Deviation 49.0 (28.0-62.0) fl RDW Coeff of Jamal 14 (11.0-15.0) % Plt Count 268 (150-400) K/uL MPV 10.10 (7.40-12.00) fL Neut % (Auto) 86.1 H (48.0-80.0) % Lymph % (Auto) 6.4 L (16.0-40.0) % [place] % (Auto) 7.5 (0.0-15.0) % Eos % (Auto) 0.0 (0.0-7.0) % Baso % (Auto) 0.0 (0.0-1.5) % Neut # (Auto) 17.5 H (1.4-5.7) K/uL Lymph # (Auto) 1.3 (0.6-2.4) K/uL [place] # (Auto) 1.5 H (0.0-0.8) K/uL Eos # (Auto) 0.0 (0.0-0.7) K/uL Baso # (Auto) 0.0 (0.0-0.1) K/uL Nucleated RBC % 0.0 /100WBC Nucleated RBCs # 0 K/uL ESR 82 H (0-14) mm/hr Sodium 135 L (136-148) mmol/L Potassium 3.9 (3.5-5.1) mmol/L Chloride 98 (98-107) mmol/L Carbon Dioxide 25.1 (21.0-32.0) mmol/L BUN 29 H (7.0-18.0) mg/dL Creatinine 2.6 H (0.8-1.3) mg/dL Est Cr Clr Drug Dosing 35.15 mL/min Estimated GFR (MDRD) 28.6 ml/min Glucose 115 H (74-106) mg/dL Uric Acid 14.4 H (2.6-7.2) mg/dL Calcium 7.3 L (8.5-10.1) mg/dL Total Bilirubin 0.9 (0.2-1.0) mg/dL AST 11 L (15-37) IU/L ALT 21 (14-63) IU/L Alkaline Phosphatase 63 (46-116) U/L C-Reactive Protein 19.60 H (0.00-0.90) mg/dL Total Protein 8.1 (6.4-8.2) g/dL Albumin 3.3 L (3.4-5.0) g/dL Globulin 4.8 H (2.6-4.0) g/dL Albumin/Globulin Ratio 0.7 L (0.9-1.6) Urine Color Urine Appearance Urine pH (5.0-8.0) Ur Specific [place] (1.001-1.035) Urine Protein (NEGATIVE) mg/dL Urine Glucose (UA) (NEGATIVE) mg/dL Urine Ketones (NEGATIVE) mg/dL Urine Occult Blood (NEGATIVE) Urine Nitrite (NEGATIVE) Urine Bilirubin (NEGATIVE) Urine Urobilinogen (<2.0) EU/dL Ur Leukocyte Esterase (NEGATIVE) Urine RBC (0-2/HPF) Urine WBC (0-5/HPF) Ur Epithelial Cells (NONE-FEW) Urine Bacteria (NEGATIVE) Ur Random Creatinine mg/dL Ur Random Sodium (40.0-220.0) mmol/L Fluid Type Fluid Color Fluid Appearance Fluid WBC /uL Fluid RBC /uL Fluid Mononuclear Cell % Fl Polymorphonucl Cell % Fluid Crystals SARS-CoV-2 RNA ([place]) (NEGATIVE) 10/22/20 10/22/20 10/22/20 Range/Units 13:40 14:30 15:03 WBC (4.0-11.0) K/uL RBC (4.50-5.90) M/uL Hgb (13.0-17.0) g/dL Hct (38.0-50.0) % MCV (80.0-98.0) fL MCH (27.0-32.0) pg MCHC (31.0-37.0) g/dL RDW Std Deviation (28.0-62.0) fl RDW Coeff of Jamal (11.0-15.0) % Plt Count (150-400) K/uL MPV (7.40-12.00) fL Neut % (Auto) (48.0-80.0) % Lymph % (Auto) (16.0-40.0) % [place] % (Auto) (0.0-15.0) % Eos % (Auto) (0.0-7.0) % Baso % (Auto) (0.0-1.5) % Neut # (Auto) (1.4-5.7) K/uL Lymph # (Auto) (0.6-2.4) K/uL [place] # (Auto) (0.0-0.8) K/uL Eos # (Auto) (0.0-0.7) K/uL Baso # (Auto) (0.0-0.1) K/uL Nucleated RBC % /100WBC Nucleated RBCs # K/uL ESR (0-14) mm/hr Sodium (136-148) mmol/L Potassium (3.5-5.1) mmol/L Chloride (98-107) mmol/L Carbon Dioxide (21.0-32.0) mmol/L BUN (7.0-18.0) mg/dL Creatinine (0.8-1.3) mg/dL Est Cr Clr Drug Dosing mL/min Estimated GFR (MDRD) ml/min Glucose (74-106) mg/dL Uric Acid (2.6-7.2) mg/dL Calcium (8.5-10.1) mg/dL Total Bilirubin (0.2-1.0) mg/dL AST (15-37) IU/L ALT (14-63) IU/L Alkaline Phosphatase (46-116) U/L C-Reactive Protein (0.00-0.90) mg/dL Total Protein (6.4-8.2) g/dL Albumin (3.4-5.0) g/dL Globulin (2.6-4.0) g/dL Albumin/Globulin Ratio (0.9-1.6) Urine Color YELLOW Urine Appearance CLEAR Urine pH 6.0 (5.0-8.0) Ur Specific [place] 1.020 (1.001-1.035) Urine Protein 100 H (NEGATIVE) mg/dL Urine Glucose (UA) NEGATIVE (NEGATIVE) mg/dL Urine Ketones TRACE H (NEGATIVE) mg/dL Urine Occult Blood SMALL H (NEGATIVE) Urine Nitrite NEGATIVE (NEGATIVE) Urine Bilirubin NEGATIVE (NEGATIVE) Urine Urobilinogen 0.2 (<2.0) EU/dL Ur Leukocyte Esterase NEGATIVE (NEGATIVE) Urine RBC 0-2 (0-2/HPF) Urine WBC 0-1 (0-5/HPF) Ur Epithelial Cells RARE (NONE-FEW) Urine Bacteria RARE (NEGATIVE) Ur Random Creatinine 107.9 mg/dL Ur Random Sodium 49.0 (40.0-220.0) mmol/L Fluid Type SYN Fluid Color YELLOW Fluid Appearance CLOUDY Fluid WBC 58284 /uL Fluid RBC < 3000 /uL Fluid Mononuclear Cell 37 % Fl Polymorphonucl Cell 64 % Fluid Crystals MONOSOD URATE SARS-CoV-2 RNA ([place]) (NEGATIVE) 10/22/20 10/23/20 10/23/20 Range/Units 16:46 05:30 05:30 WBC 13.00 H (4.0-11.0) K/uL RBC 3.69 L (4.50-5.90) M/uL Hgb 11.6 L (13.0-17.0) g/dL Hct 34.6 L (38.0-50.0) % MCV 93.8 (80.0-98.0) fL MCH 31.4 (27.0-32.0) pg MCHC 33.5 (31.0-37.0) g/dL RDW Std Deviation 49.3 (28.0-62.0) fl RDW Coeff of Jamal 14 (11.0-15.0) % Plt Count 200 (150-400) K/uL MPV 10.50 (7.40-12.00) fL Neut % (Auto) 91.4 H (48.0-80.0) % Lymph % (Auto) 5.0 L (16.0-40.0) % [place] % (Auto) 3.6 (0.0-15.0) % Eos % (Auto) 0.0 (0.0-7.0) % Baso % (Auto) 0.0 (0.0-1.5) % Neut # (Auto) 11.9 H (1.4-5.7) K/uL Lymph # (Auto) 0.7 (0.6-2.4) K/uL [place] # (Auto) 0.5 (0.0-0.8) K/uL Eos # (Auto) 0.0 (0.0-0.7) K/uL Baso # (Auto) 0.0 (0.0-0.1) K/uL Nucleated RBC % 0.0 /100WBC Nucleated RBCs # 0 K/uL ESR 79 H (0-14) mm/hr Sodium (136-148) mmol/L Potassium (3.5-5.1) mmol/L Chloride (98-107) mmol/L Carbon Dioxide (21.0-32.0) mmol/L BUN (7.0-18.0) mg/dL Creatinine (0.8-1.3) mg/dL Est Cr Clr Drug Dosing mL/min Estimated GFR (MDRD) ml/min Glucose (74-106) mg/dL Uric Acid (2.6-7.2) mg/dL Calcium (8.5-10.1) mg/dL Total Bilirubin (0.2-1.0) mg/dL AST (15-37) IU/L ALT (14-63) IU/L Alkaline Phosphatase (46-116) U/L C-Reactive Protein (0.00-0.90) mg/dL Total Protein (6.4-8.2) g/dL Albumin (3.4-5.0) g/dL Globulin (2.6-4.0) g/dL Albumin/Globulin Ratio (0.9-1.6) Urine Color Urine Appearance Urine pH (5.0-8.0) Ur Specific [place] (1.001-1.035) Urine Protein (NEGATIVE) mg/dL Urine Glucose (UA) (NEGATIVE) mg/dL Urine Ketones (NEGATIVE) mg/dL Urine Occult Blood (NEGATIVE) Urine Nitrite (NEGATIVE) Urine Bilirubin (NEGATIVE) Urine Urobilinogen (<2.0) EU/dL Ur Leukocyte Esterase (NEGATIVE) Urine RBC (0-2/HPF) Urine WBC (0-5/HPF) Ur Epithelial Cells (NONE-FEW) Urine Bacteria (NEGATIVE) Ur Random Creatinine mg/dL Ur Random Sodium (40.0-220.0) mmol/L Fluid Type Fluid Color Fluid Appearance Fluid WBC /uL Fluid RBC /uL Fluid Mononuclear Cell % Fl Polymorphonucl Cell % Fluid Crystals SARS-CoV-2 RNA ([place]) NEGATIVE (NEGATIVE) 10/23/20 Range/Units 05:30 WBC (4.0-11.0) K/uL RBC (4.50-5.90) M/uL Hgb (13.0-17.0) g/dL Hct (38.0-50.0) % MCV (80.0-98.0) fL MCH (27.0-32.0) pg MCHC (31.0-37.0) g/dL RDW Std Deviation (28.0-62.0) fl RDW Coeff of Jamal (11.0-15.0) % Plt Count (150-400) K/uL MPV (7.40-12.00) fL Neut % (Auto) (48.0-80.0) % Lymph % (Auto) (16.0-40.0) % [place] % (Auto) (0.0-15.0) % Eos % (Auto) (0.0-7.0) % Baso % (Auto) (0.0-1.5) % Neut # (Auto) (1.4-5.7) K/uL Lymph # (Auto) (0.6-2.4) K/uL [place] # (Auto) (0.0-0.8) K/uL Eos # (Auto) (0.0-0.7) K/uL Baso # (Auto) (0.0-0.1) K/uL Nucleated RBC % /100WBC Nucleated RBCs # K/uL ESR (0-14) mm/hr Sodium 138 (136-148) mmol/L Potassium 4.3 (3.5-5.1) mmol/L Chloride 104 (98-107) mmol/L Carbon Dioxide 22.7 (21.0-32.0) mmol/L BUN 35 H (7.0-18.0) mg/dL Creatinine 2.4 H (0.8-1.3) mg/dL Est Cr Clr Drug Dosing 38.08 mL/min Estimated GFR (MDRD) 31.3 ml/min Glucose 117 H (74-106) mg/dL Uric Acid (2.6-7.2) mg/dL Calcium 7.5 L (8.5-10.1) mg/dL Total Bilirubin 0.5 (0.2-1.0) mg/dL AST 6 L (15-37) IU/L ALT 11 L (14-63) IU/L Alkaline Phosphatase 59 (46-116) U/L C-Reactive Protein 25.10 H (0.00-0.90) mg/dL Total Protein 7.0 (6.4-8.2) g/dL Albumin 2.5 L (3.4-5.0) g/dL Globulin 4.5 H (2.6-4.0) g/dL Albumin/Globulin Ratio 0.6 L (0.9-1.6) Urine Color Urine Appearance Urine pH (5.0-8.0) Ur Specific [place] (1.001-1.035) Urine Protein (NEGATIVE) mg/dL Urine Glucose (UA) (NEGATIVE) mg/dL Urine Ketones (NEGATIVE) mg/dL Urine Occult Blood (NEGATIVE) Urine Nitrite (NEGATIVE) Urine Bilirubin (NEGATIVE) Urine Urobilinogen (<2.0) EU/dL Ur Leukocyte Esterase (NEGATIVE) Urine RBC (0-2/HPF) Urine WBC (0-5/HPF) Ur Epithelial Cells (NONE-FEW) Urine Bacteria (NEGATIVE) Ur Random Creatinine mg/dL Ur Random Sodium (40.0-220.0) mmol/L Fluid Type Fluid Color Fluid Appearance Fluid WBC /uL Fluid RBC /uL Fluid Mononuclear Cell % Fl Polymorphonucl Cell % Fluid Crystals SARS-CoV-2 RNA ([place]) (NEGATIVE) Result Diagrams: 10/23/20 05:30 10/23/20 05:30 Walker Results Last 24 hrs: Microbiology 10/22/20 15:03 Gram Stain - Final Knee Fluid - Knee, Left Sepsis Event Note - Evaluation Sepsis Screening Result: No Definite Risk - Focused Exam Vital Signs: Vital Signs Temp Pulse Resp BP Pulse Ox 10/23/20 07:40 97.5 F 69 14 109/73 99 10/23/20 04:05 97.9 F 69 16 108/63 97 10/22/20 23:49 96.8 F L 76 16 109/63 96 - Problem List & Annotations (1) Renal injury SNOMED Code(s): 83938595 Code(s): S37.009A - UNSPECIFIED INJURY OF UNSPECIFIED KIDNEY, INITIAL ENCOUNTER Status: Acute Current Visit: Yes - Problem List Review Problem List Initiated/Reviewed/Updated: Yes - Assessment Assessment:: 35-year-old male admitted with gouty arthritis in multiple joints and acute on chronic kidney injury: 1. Gouty arthritis: -improved. 6/10 pain this morning, no erythema/ hot joints/ no swelling/ no tophi, able to ambulate with crutches, will give pt script for crutches on d/c likely tommorow. improved wbc 13.0, ESR, CRP and uric acid remain elevated Synovial fluid demonstrated monosodium urate crystals. Extensive work-up: normal Hep panel, RF, L[place], STEFANI, IGA reccomended per . Patient denies any alcohol use in over a month. States he has a regular diet. We will continue with prednisone 60, consult rheumatology. Patient currently unable to ambulate therefore will consult PT to evaluate and treat. Prophylactically we will give Rocephin one-time dose in case of STD as underlying cause. Pain control with morphine 2 g to 2 hours, will avoid any NSAIDs or colchicine due to renal injury. Trend ESR and CRP daily 2. CKD: -mild improvement BUN 35, creatinine 2.4, no known previous history of kidney disease. Previous renal ultrasound was unremarkable Unchanged UA We will consult nephrology in [place] and arrange for f/u appointment Avoid any NSAIDs or nephrotoxic agents Continue to hydrate at a maintenance rate of 125 LR. FeNa: 0.8% CODE STATUS: Full code, confirmed with grounds worker services. Dispo: Expected 1 to 2 days, will be determined based on patient's symptoms. Diet: Regular, limit from animal protein sources. DVT prophylaxis: Heparin 5000 subcu due to kidney injury. - Plan Plan:: 35-year-old male admitted with gouty arthritis in multiple joints and acute on chronic kidney injury: 1. Gouty arthritis: , upward trending ESR, CRP and uric acid levels. Synovial fluid demonstrated monosodium urate crystals. Extensive work-up has not demonstrated any RF, or vasculitis contributing to compromise kidney function. Patient denies any alcohol use in over a month. States he has a regular diet. continue with prednisone 40 with weekly taper for 21-30 days; consider consulting rheumatology. Patient currently unable to ambulate therefore will consult PT to evaluate and treat. Prophylactically we will give Rocephin one-time dose in case of STD as underlying cause. Pain control with morphine 2 g to 2 hours, will avoid any NSAIDs or colchicine due to renal injury. Trend ESR and CRP daily 2. Acute on chronic kidney injury: BUN 29, creatinine 2.6, stable since last 3 weeks, no previous history of kidney disease. Previous renal ultrasound was unremarkable Unchanged UA We will consult nephrology in [place] Avoid any NSAIDs or nephrotoxic agents Continue to hydrate at a maintenance rate of 125 LR. Assess FeNa CODE STATUS: Full code, confirmed with grounds worker services. Dispo: Expected 1 to 2 days, will be determined based on patient's symptoms. Diet: Regular, avoid any meals with high levels of protein or high fructose corn syrup. DVT prophylaxis: Heparin 5000 subcu due to kidney injury.
[2020-10-23] MEDS: predniSONE 10 MG Tab PO SCH (11:48)
[2020-10-24] MEDS: Heparin Sodium 5,000 Units/ML Vial SUBCUT SCH ×2 (06:00→14:24)
[2020-10-24 06:03] LABS: CARBON DIOXIDE,CO2 22.7 mmol/L (21.0-32.0); POTASSIUM,K 3.9 mmol/L (3.5-5.1)
[2020-10-24] MEDS: Lactated Ringers 1,000 ML IV SCH (07:48)
[2020-10-24] MEDS: predniSONE 10 MG Tab PO SCH (08:41)
[2020-10-24 12:07] LABS: C.TRACHOMATIS BY TMA Negative (Negative); N.GONORRHOEAE BY TMA Negative (Negative)
--- NOTE | 2020-10-24 19:58 | PCM.DCSUM1 ---
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 Patient has no significant past medical history, however was recently seen for joint pain, treated for gouty arthritis, underwent extensive work-up with imaging, labs, nephrology consult for kidney injury and started on prednisone taper for what appeared to be a gouty arthritis flare. Since PCPs follow-up patient has discontinued all use of NSAIDs, home herbal remedies from [place] as well as been compliant and adherent with the prednisone regimen. Upon follow-up with PCP patient was feeling much improved, all studies were found to be negative including imaging such as x-rays, retroperitoneal ultrasound and rheumatologic labs. However, at that time his uric acid was elevated as well as ESR CRP and since in comparison today with lab collection in the ED all of these values have increased. Patient described pain on admission 10 out of 10, was given bolus of LR, lidocaine 30 of Toradol and prednisone 60. Since then symptoms have mildly improved to be an 8 out of 10. Otherwise patient denies any alleviating or aggravating factors. Denies any previous history of rheumatologic or kidney disease. Denies any associated family history. Denies any associated symptoms today such as fever, chills, no obvious tophi, no significant erythema or drainage from any joints. Denies any history of STDs or recent exposures or travel. Furthermore, patient denies any nausea, vomiting, diarrhea, urinary changes, flank pain or suprapubic tenderness. ED course: CBC demonstrating elevated white count of 20.3, CMP demonstrating renal failure with a BUN of 29 and creatinine of 2.6 respectively, Covid swabnegative, synovial uric acid, CRP19.6, ESR82, chlamydia and gonorrhea, synovial fluid tested from left knee joint indicating monosodium urate crystals. Brief History: This is a 35-year-old man and with a reported past medical history of gout who comes to the emergency department with a chief complaint of joint pain. The patient states that he was diagnosed with gout approximately 2 weeks ago in the emergency department here. He states that he was given prednisone and he did really well. He states that he when he ran out of the medications his pain started to return however now it is worse. He rates his pain as 10 out of 10 burning located in his bilateral knees bilateral ankles, bilateral wrists and some of his fingers. He denies any fevers or redness. He denies any numbness but states that he is unable to walk secondary to the pain. He states that he did follow-up with Dr. Schmitt in the clinic and was told that he had some kidney dysfunction. He denies any preceding issues such as cold- like symptoms denies any weight loss or night sweats. He has not traveled out of country and does not know if he he is up-to-date on his vaccinations. He states that he is not sexually active and has not had a history of STDs. He denies any family history of rheumatological disorders. He denies any chest rena n, shortness of breath, abdominal pain, nausea or vomiting. He denies any headache. Diagnosis: Stroke: No - Discharge Data Discharge Date: 10/24/20 Discharge Disposition: Home, Self-Care 01 Condition: Good - Referral to Home Health Primary Care Physician: Bal Blankenship MD - Discharge Diagnosis/Problem(s) (1) Renal injury SNOMED Code(s): 68527586 ICD Code: S37.009A - UNSPECIFIED INJURY OF UNSPECIFIED KIDNEY, INITIAL ENCOUNTER Status: Acute - Patient Summary/Data Consults: Consultations 10/22/20 18:17 PT Evaluation and Treatment [CONS] Routine - Patient Instructions Diet: Usual Diet as Tolerated Activity: As Tolerated Driving: May Drive Today Showering/Bathing: May Shower Notify Provider of: Fever, Increased Pain, Swelling and Redness, Drainage, Nausea and/or Vomiting Other/Special Instructions: Please return to hospital in the event your symptoms resume or they worsen, you develop significant fever, chills, joint pain, inability to ambulate. - Discharge Plan *PRESCRIPTION DRUG MONITORING PROGRAM REVIEWED*: Not Applicable *COPY OF PRESCRIPTION DRUG MONITORING REPORT IN PATIENT ABELARDO: Not Applicable Prescriptions/Med Rec: predniSONE 40 mg PO DAILY 30 Days #30 tablet Home Medications: Home Meds predniSONE 40 mg PO DAILY 30 Days #30 tablet 10/24/20 [Rx] Oxygen Therapy Mode: Room Air Patient Handouts: Gout, [id number], Prednisone tablets Referrals: Shagufta Hernandez MD [Ordering Only Provider] - Vida Sanchez PA [Physician Dough Sheeter] - 11/01/20 10:00 am Terrell Munguia MD [Ordering Only Provider] - 10/25/20 1:30 pm - Discharge Summary/Plan Comment DC Time >30 min.: No Discharge Summary/Plan Comment: Patient is to follow-up closely with PCP. Additional lab work required has been ordered and patient and given prescription for both labs as well as crutches. Appointments have been arranged, specialist have been notified. Patient is to c losely follow-up with epic cadence specialists Dr. Grissom at [facility] in [facility]. Furthermore Dr. Hernandez in rheumatology will be seeing patient with all appropriate labs to further evaluate underlying cause for both gouty arthritis and kidney disease. In the interim patient has been given strict instructions using translation to understand the serious nature of his current kidney function. Was advised to avoid NSAIDs and any other nephrotoxic agents. Furthermore patient is to continue on daily dose of 40 mg prednisone as instructed by Dr. Hernandez with [facility] in [facility].. - Patient Data Vitals - Most Recent: Last Vital Signs Temp 97.9 F 10/24/20 12:00 Pulse 74 10/24/20 12:00 Resp 16 10/24/20 12:00 BP 118/80 10/24/20 12:00 Pulse Ox 96 10/24/20 12:00 Weight - Most Recent: 170 lb 1.6 oz I&O - Last 24 hours: Intake & Output 10/24/20 10/24/20 10/24/20 06:59 14:59 22:59 Intake Total 600 Output Total 2600 Balance -1999 Lab Results - Last 24 hrs: Laboratory Results - last 24 hr 10/22/20 10/24/20 10/24/20 Range/Units 14:30 04:45 04:45 WBC 16.38 H (4.0-11.0) K/uL RBC 3.69 L (4.50-5.90) M/uL Hgb 11.5 L (13.0-17.0) g/dL Hct 35.0 L (38.0-50.0) % MCV 94.9 (80.0-98.0) fL MCH 31.2 (27.0-32.0) pg MCHC 32.9 (31.0-37.0) g/dL RDW Std Deviation 48.9 (28.0-62.0) fl RDW Coeff of Jamal 14 (11.0-15.0) % Plt Count 241 (150-400) K/uL MPV 11.00 (7.40-12.00) fL Neut % (Auto) 88.9 H (48.0-80.0) % Lymph % (Auto) 6.8 L (16.0-40.0) % Swift % (Auto) 4.3 (0.0-15.0) % Eos % (Auto) 0.0 (0.0-7.0) % Baso % (Auto) 0.0 (0.0-1.5) % Neut # (Auto) 14.6 H (1.4-5.7) K/uL Lymph # (Auto) 1.1 (0.6-2.4) K/uL Swift # (Auto) 0.7 (0.0-0.8) K/uL Eos # (Auto) 0.0 (0.0-0.7) K/uL Baso # (Auto) 0.0 (0.0-0.1) K/uL Nucleated RBC % 0.0 /100WBC Nucleated RBCs # 0 K/uL Sodium 141 (136-148) mmol/L Potassium 3.9 (3.5-5.1) mmol/L Chloride 105 (98-107) mmol/L Carbon Dioxide 22.7 (21.0-32.0) mmol/L BUN 39 H (7.0-18.0) mg/dL Creatinine 2.2 H (0.8-1.3) mg/dL Est Cr Clr Drug Dosing 41.54 mL/min Estimated GFR (MDRD) 34.6 ml/min Glucose 101 (74-106) mg/dL Calcium 8.0 L (8.5-10.1) mg/dL Total Bilirubin 0.3 (0.2-1.0) mg/dL AST 9 L (15-37) IU/L ALT 13 L (14-63) IU/L Alkaline Phosphatase 51 (46-116) U/L Total Protein 6.7 (6.4-8.2) g/dL Albumin 2.3 L (3.4-5.0) g/dL Globulin 4.4 H (2.6-4.0) g/dL Albumin/Globulin Ratio 0.5 L (0.9-1.6) Chlamydia/GC Source URINE C.trachomatis RNA (TMA) Negative (Negative) N.gonorrhoeae RNA (TMA) Negative (Negative) JAMEL Results - Last 24 hrs: Microbiology 10/22/20 15:03 Gram Stain - Final Knee Fluid - Knee, Left Body Fluid Culture - Preliminary NO GROWTH AFTER 2 DAYS Med Orders - Current: Current Medications Discontinued Medications Heparin Sodium (Porcine) (Heparin Sodium 5,000 Units/Ml Vial) 5,000 units SUBCUT Q8H GLORIA Heparin Sodium (Porcine) (Heparin Sodium 5,000 Units/Ml Vial) 5,000 units SUBCUT Q8H [facility] Last Admin: 10/24/20 14:24 Dose: 5,000 units Documented by: Lactated Ringer's (Ringers, Lactated) 1,000 mls @ 999 mls/hr IV ASDIRECTED [facility] Last Admin: 10/22/20 14:32 Dose: 999 mls/hr Documented by: Lactated Ringer's (Ringers, Lactated) 1,000 mls @ 125 mls/hr IV ASDIRECTED [facility] Last Admin: 10/24/20 07:48 Dose: 125 mls/hr Documented by: Ceftriaxone Sodium 1 gm/ (Sodium Chloride) 50 mls @ 100 mls/hr IV Q24H [facility] Last Admin: 10/22/20 19:29 Dose: Not Given Documented by: Ceftriaxone Sodium/Dextrose 1 (gm/ Premix) 50 mls @ 100 mls/hr IV Q24H [facility] Last Admin: 10/22/20 20:27 Dose: 100 mls/hr Documented by: Ceftriaxone Sodium/Dextrose (Rocephin In Dextrose,Iso-Osm 1 Gm/50 Ml) Confirm Administered Dose 50 mls @ as directed .ROUTE .STK-MED ONE Stop: 10/22/20 19:29 Last Admin: 10/22/20 19:39 Dose: Not Given Documented by: Ketorolac Tromethamine (Ketorolac 15 Mg/Ml Sdv) 30 mg IVPUSH ONETIME ONE Stop: 10/22/20 12:28 Last Admin: 10/22/20 12:48 Dose: Not Given Documented by: Ketorolac Tromethamine (Ketorolac 30 Mg/Ml Sdv) 30 mg IM ONETIME ONE Stop: 10/22/20 12:42 Last Admin: 10/22/20 12:47 Dose: 30 mg Documented by: Lidocaine HCl (Lidocaine 1% 5 Ml Sdv) 10 ml INJECT ONETIME ONE Stop: 10/22/20 14:36 Last Admin: 10/22/20 14:46 Dose: 10 ml Documented by: Morphine Sulfate (Morphine 2 Mg/Ml Syringe) 2 mg IVPUSH Q2H PRN PRN Reason: Pain (severe 7-10) Stop: 10/23/20 18:18 Last Admin: 10/23/20 08:09 Dose: 2 mg Documented by: Ondansetron HCl (Ondansetron 4 Mg Tab.Dis) 4 mg PO Q4H PRN PRN Reason: nausea, able to take PO Prednisone (Prednisone 20 Mg Tab) 60 mg PO ONETIME ONE Stop: 10/22/20 16:17 Last Admin: 10/22/20 16:45 Dose: 60 mg Documented by: Prednisone (Prednisone 10 Mg Tab) 40 mg PO DAILY GLORIA Stop: 10/29/20 09:01 Last Admin: 10/24/20 08:41 Dose: 40 mg Documented by:
== END 2020-10-24 16:06 | disposition home or self-care (01) | DRG 554 ==
LOC: MW.ED 11:59 → MW.MS 16:50
PROVIDERS: ADMIT Internal Medicine; ATTEND Internal Medicine
DX: M10.09 Idiopathic gout, multiple sites (principal); N17.9 Acute kidney failure, unspecified; Z20.822 Contact with and (suspected) exposure to COVID-19; N18.9 Chronic kidney disease, unspecified
CPT/HCPCS: 20610; 36415; 80053; 81001; 82570; 84300; 84550; 85025; 85652; 86140; 87070; 87205; 87491; 87591; 89050; 89060; 96372; 97161-GP; 99284; 99284-25; A9270-GY; J0696; J1644; J1885; J2270; J7120; U0002